=== PATIENT | male | born 1960 | race Caucasian/White ===

== ENCOUNTER 2024-10-11 15:45 | Outpatient (CLI) | payer BC, SELFPAY ==
--- NOTE | 2024-10-11 09:08 | DI.RAD_ITS ---
Exam(s) XR PELVIS AP EXAM: XR PELVIS AP CLINICAL HISTORY: right hip pain. TECHNIQUE: 2D digital imaging was performed. COMPARISON: CT ABD PELVIS WITH CONTRAST from 03/05/2009 CR XR HIP RIGHT W PELVIS from 06/21/2024 FINDINGS: Single AP view of both hips. There are no fractures. However, advanced narrowing of the superior aspect right hip joint. Similar to June 2024. Left hip joint space appears unremarkable on this single view. Sclerotic density is noted in the right ischial tuberosity region which is unchanged from outside hospital images of N 2023. IMPRESSION: Advanced degenerative narrowing of the superior aspect of the right hip joint, similar to previous Benign-appearing sclerotic bone density in the inferior pubic ramus right-side. This was also eviden t on prior imaging studies dating back to CT scan of 2008. Therefore most probably a benign bone isl and and very unlikely to be a sclerotic metastatic lesion. DATA REPOSITORY: RADIATION DOSE DELIVERED:
== END 2024-10-11 15:46 | disposition home or self-care (01) ==
LOC: DIORS 15:47
PROVIDERS: PCP Family Medicine; Visit Provider Physician Assistant
DX: M16.11 Unilateral primary osteoarthritis, right hip (principal)
CPT/HCPCS: 72170

== ENCOUNTER 2025-01-24 00:44 | Outpatient (CLI) | payer BC, SELFPAY ==
[2025-01-24 11:11] LABS: HCT 45.9 % (40.0-50.0); HGB 15.4 g/dL (13.5-17.5); MCH 28.2 pg (27.0-33.0); MCHC 33.6 % (32.0-36.0); MCV 84 fL (80-95); MPV 9.1 fL (8.0-11.0); Platelet Count 206 10^3/uL (130-400); RBC 5.46 10^6/uL (4.36-5.78); RDW-SD 42.7 fL
[2025-01-24 11:33] LABS: BUN 15 mg/dL (7-18); Calcium 8.9 mg/dL (8.5-10.1); Chloride 103 mmol/L (98-107); Estimated GFR 83.52 (mL/min/1.73m2); Glucose 94 mg/dL (74-106); Potassium 3.9 mmol/L (3.5-5.1); Sodium 141 mmol/L (136-145)
== END 2025-01-24 00:45 | disposition home or self-care (01) ==
LOC: LBO 00:44
PROVIDERS: PCP Family Medicine; Visit Provider Student in an Organized Health Care Education/Training Program
DX: M16.11 Unilateral primary osteoarthritis, right hip (principal); Z01.818 Encounter for other preprocedural examination
CPT/HCPCS: 36415; 80048; 85027

== ENCOUNTER 2025-02-01 06:10 | Day surgery (SDC) | payer BC, SELFPAY ==
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
[2025-02-01] VITALS (20 sets, daily range): BP systolic 126–152; BP diastolic 68–84; PULSE 48–61; RESP 0–19; TEMP 36.3–36.7; O2SAT 92–99; BMI 32.3
[2025-02-01] MEDS: Celecoxib 200 MG CAP 400 MG PO (06:47)
[2025-02-01] MEDS: Acetaminophen 500 MG TAB 1000 MG PO (06:47)
--- NOTE | 2025-02-01 07:08 | PDOC.DSDIS_ITS ---
Date of service: 02/01/25 Discharge Plan Disposition Patient Disposition: Home Condition: Good Discharge Details Reason For Visit: Right hip DJD Attending Provider: Danish Mcrae Primary Care Provider: Mehrdad Dobbs Home Meds and New Rx's Prescriptions: New acetaminophen 500 mg tablet 1,000 mg PO Q8H PRN Qty: 90 0RF Rx Instructions: Take two tablets up to every 8 hours as needed for pain celecoxib [Celebrex] 200 mg capsule 200 mg PO BID PRNQty: 60 0RF Rx Instructions: Take one tablet twice daily for pain and inflammation docusate sodium [Colace] 100 mg capsule 100 mg PO BID Qty: 28 0RF pantoprazole 40 mg tablet,delayed release (DR/EC) 40 mg PO DAILY Qty: 14 0RF dexamethasone 4 mg tablet 4 mg PO DAILY Qty: 2 0RF Rx Instructions: Take one tablet once daily for two days oxycodone 5 mg tablet 5 mg PO Q6H PRNQty: 12 0RF Rx Instructions: Take one tablet up to every 6 hours as needed for severe postoperative pain Continued apixaban 5 mg tablet 5 mg PO BID amlodipine 10 mg tablet 10 mg PO DAILY Discharge Instructions Additional Instructions: Total Hip Discharge Instructions Activity: The most important activity is to walk. You should try to take short walks a few times a day. You have no restrictions on movement or positioning, but do not try to force what you do. You will find some stiffness and weakness with hip flexion (lifting your knee). Do not try to strengthen this too early, continue to practice walking and stairs and this will come. - Outpatient physical therapy can be helpful to help return you to a normal gait and improve your flexibility and strength. This can start around 2 weeks. For some patients, it?s not necessary. Usually this is determined at the time of discharge or at the first post-operative visit. - You should wear the YVONNE hose on both legs for 2 weeks. Dressing: Keep the surgical dressing in place for at least one week. After the first week it may be removed and replace with light gauze and tape or nothing. It may get wet after 3 days but avoid soaking the dressing. If it gets wet, just lightly pat dry. It is important to always keep some gauze between skin folds, especially when you are sitting. Spend some time with the wound exposed when you are lying flat as the incision does wrinkle onto itself. Medications: - You should take Tylenol and an anti-inflammatory Celebrex as your primary pain control medications. If the Celebrex is too expensive or not covered, please call the office for another alternative (Advil/Ibuprofen or Naproxen/Aleve). - You have been prescribed a stronger pain medication Oxycodone for breakthrough pain, take as needed as prescribed. - You have also been prescribed a stomach acid reduction agent Pantoprozole to help reduce stomach acid and reflux. - You have also been prescribed Decadron to help with post-operative nausea and pain. You will take this for two days starting tomorrow. - You will resume taking your apixaban tomorrow on 02/02/25 for DVT prevention unless instructed otherwise. - If you have constipation you should take Colace (which has been prescribed) or Miralax (which is available [id number]). It takes most people 3-4 days to have a bowel movement. Follow-up: 2 weeks If you have any acute concerns or questions, please do not hesitate to contact the office at [phone]. You may contact Dr. Mcrae with any questions after hours through the hospital at [phone] or on his cell phone at [phone]. Referrals: Danish Mcrae MD [ [facility] STAFF PHYSICIAN, Orthopaedic Surgical] Equipment/Supplies: Walker Activity:: Elevate Remove Dressings/Wound Care:: Do Not Remove Shower/Bathe:: Cover Diet:: As Tolerated Discharge Orders Discharge Orders: Discharge Order (Routine); Ordered 02/01/25 Ordered By: Tabatha Levin
[2025-02-01] MEDS: Lactated Ringers 1,000 ML 80 ML IV (07:10)
--- NOTE | 2025-02-01 07:48 | ROE_ITS ---
Operative Note Operative Note PRE-OP DIAGNOSIS: Right Hip Osteoarthritis POST-OP DIAGNOSIS: same PROCEDURE: Right Anterior Total Hip Arthroplasty with Intraoperative Navigation SURGEON: Danish Mcrae SUPERVISOR CORRESPONDENCE SECTION: Tabatha Levin ANESTHESIA TYPE: Spinal Refer to Anesthesia Record ESTIMATED BLOOD LOSS: 250 PATHOLOGY: none sent TOURNIQUET TIME: 0 COMPLICATIONS: None Patient was transported to: PACU Patient's condition: stable Implants: 1. Depuy Luna Pier Acetabular Component, 60mm 2. Depuy Acetabular Liner, [id number] 3. Depuy Actis Standard Collared Femoral Stem, Size 9 4. Depuy Altrx Ceramic Femoral Head, Size 36+8.5mm Indications: I have seen Ruel in clinic for symptoms of hip arthritis, confirmed with radiographic findings. Ruel has exhausted nonoperative methods and was having significant limitations in daily function and desired better function and less pain. I discussed the technical details of a hip replacement. I explained the risks of the procedure to include, but not limited to, bleeding, infection, pain, stiffness, fracture, damage to nerves and vessels, damage to muscles and tendons, loosening, instability, leg length inequality, need for repeat procedure, blood clot and cardiopulmonary demise. Despite these risks, he elected to proceed. Findings: There was significant signs of arthritis throughout the hip. Procedure Description: Ruel was greeted in the preoperative holding area where the correct side was identified and marked. The consent was reviewed with the patient and signed. The history and physical was updated. All questions were answered. He was taken back to the operating room. A spinal anesthestic was then administered. The feet were wrapped with cast padding and Coban and then placed into the boot liners and then into the boots. Care was taken to protect the skin and make sure the heels were fully down and the boots were stable. The patient was then positioned onto the HANA table. Both legs were held in a neutral position. SCDs were applied. The patient was then slid down onto a peroneal post. Prophylactic antibiotics in the form of Cefazolin were administered. 1g of Tranxemic Acid was given intravenously within 30 minutes of incision. The right leg was then prepped with Chloraprep and draped in a standard fashion. A second prep with Chloraprep was performed prior to placement of a shower-curtain type drape with Iodine impregnated skin protection. A timeout to confirm correct identity, side and site, procedure, allergies, anesthesia, and medical concerns was performed. An obliquely oriented incision was made starting lateral to the ASIS and running distal over the Tensor Fascia Agnieszka (TFL) muscle belly toward the fibular head, approximately 10cm. The skin and soft tissue was dissected sharply, through Ted?s fascia, and to the fascia of the TFL. With the fascia and superior border of the IT band identified, the fascia was incised with a new knife just above any perforators from the IT band. The TFL muscle belly was bluntly dissected away from the fascia and moved laterally. The fat between TFL and rectus was identified to ensure the dissection was not within the TFL. Blunt dissection created space between abductors and the capsule and retractor was placed over the lateral femoral neck. The fibers of the rectus femoris tendon were identified and these were freed from the anterior capsule. A second cobra retractor was placed around the medial femoral neck. The TFL was further retracted laterally to show the deep fascia. Careful dissection through this layer identified three main crossing vessels of the lateral femoral circumflex. These were cauterized in multiple locations and then cut without any noticeable bleeding. The TFL was further released bluntly from the deep fascia to expose anterior hip capsule and fat The soft tissue orthopaedic retractor was then placed beneath the TFL and against sartorius and medial soft tissues to protect and retract the soft tissues. A T-capsulotomy was then performed starting at the superior lateral acetabulum and moving distally to the intertrochanteric ridge. These capsular flaps were tagged with a No. 1 Vicryl and elevated from within. The capsular flaps were released to the shoulder of the lateral neck and to the lesser trochanter to give excellent visualization of the proximal femur. A neck osteotomy was performed using an oscillating saw based on preoperative templates. This cut started in the shoulder and of the lateral neck and exited medially. The saw was at all times directed medially to avoid injury to the greater trochanter. Gross traction was applied to the leg and the osteotomy opened. The femoral head was removed with a corkscrew, making sure to protect the TFL on its exit. Traction was released after head removal. This was measured on the back table to determine the starting reamer size. Portions of the rectus obscuring visualization were minimally elevated off the superior acetabulum. An anterior retractor was placed over the anterior wall between capsule and labrum and attached to the Gripper retraction system. The femur was rotated to 90 degrees and medial capsule was fully released until the lesser trochanter was palpable and visible; the femur was returned to 30 degrees. A posterior retractor was placed similarly between capsule and labrum. This provided excellent visualization. The contents of the cotyloid fossa were removed with electrocautery and the labrum was removed with a knife. There was a notable floor osteophyte. There was significant chondromalacia of the superior acetabulum. Acetabular reaming began with a 57mm reamer. This first reaming was directed anterior to posterior and medial to get down to the true floor. This was inspected and reamed until the true floor was reached. The anterior retractor was then released and entry and exit was provided by traction on the capsular flaps. I then reamed sequentially up to a 60mm reamer where good fit was obtained. The larger reamers were oriented based on anatomical reference of the anterior and lateral wetzel to ensure proper abduction and anteversion. Positioning and size was confirmed with the fluoroscopy. A 60mm Depuy Luna Pier acetabular component was selected. The acetabulum was reamed around the periphery with the selected acetabular size to prevent a rim fit. The deep tissues were irrigated. The acetabular component was then impacted in a position of about 40-45 degrees of abduction and 15-20 degrees of anteversion, using the patient?s anatomy as the ultimate landmark. Fluoroscopy was used to confirm this. There was excellent patternmaker hand of the acetabular component and the inserting handle was removed. The acetabular liner, Depuy [id number] polyethylene liner, was inserted and lined up with the tines of the acetabular component. There was no soft tissue interposition. The liner was then impacted into position and confirmed to be well-seated. A portion of the mitzy-articular cocktail was then injected around the acetabulum into the capsule and periosteum. This cocktail consisted of 123mg of Ropivacaine, 0.25mg of Epinephrine, 0.04mg of Clonidine, and 15mg of Ketorolac, diluted to 50cc. The leg was rotated to 120 degrees. Any remaining medial capsule was released until the lesser trochanter was easily palpable. A retractor was placed medially. The lateral capsule was further released into the shoulder to allow access to the greater trochanter. A Andrea retractor was placed over the greater trochanter which allowed the trochanter to flip in front of the capsule for excellent exposure. The leg was brought down into maximal extension and 20 degrees of adduction while ensuring there was no impingement on the acetabulum. Any remnant capsule within the trochanter was released. Piriformis and obturator externis were identified and protected. There was excellent access to the proximal femur. The lateral neck remnant was removed with a rongeur. A blunt canal probe was used to identify the canal and trajectory for later broaching. A box osteotome initiated the broach course. A small curved rasp and a curved curette were used to work laterally. Broaching then began with a starter Actis broach. This was inserted manually around the trochanter and into the canal before mallet blows. The broach was seated to a few millimeters below the cut level based on the neck cut and the preoperative template. Sequential broaching was continued with the [employer] pneumatic broaching device until a tight fit was obtained with good rotational control of the femur. A trial standard neck was inserted along with a +8.5 trial head. The leg was brought out of extension and adduction and then reduced with traction and internal rotation. The leg was stable anteriorly in a position of 30 degrees of extension and 90 degrees of external rotation. Fluoroscopy was used to ensure there was no fracture and the stem was seated well. Leg lengths were checked with an AP pelvis and pelvic reference points. [employer] navigation system was used to confirm appropriate positioning and leg length and offset. Once content with the desired offset and leg lengths, the leg was brought back into extension, external rotation and adduction. The periosteum and surrounding tissue was injected with remaining portion of the mitzy-articular cocktail. The proximal femur was irrigated as well as the deep tissues. The Depuy Actis standard collared stem, size 9, was then manually inserted into the proximal femur making sure to control rotation. It was then malleted into position with light blows, giving breaks to allow bone expansion and decrease risk of fracture. The selected Depuy Altrx Ceramic Head, size 36+8.5mm, was then placed onto the clean and dry trunnion and secured with impaction onto the tapered fit. The leg was brought back out of extension and adduction and reduced with traction and internal rotation. Stability was confirmed with no shuck at 90 degrees of external rotation and 30 degrees of extension. No impingement through range of motion arc. Final x-ray images were obtained with fluoroscopy to confirm adequate positioning and no intraoperative fracture. The deep tissues were thoroughly irrigated with Surgiphor, betadine solution. This was allowed to sit in the wound for 3 minutes before being thoroughly irrigated out with normal saline. The capsule was then reapproximated with the previously placed sutures and the indirect head of the rectus was inspected and reapproximated with a #1 Vicryl. The TFL fascia was finally closed with a No. 2 Stratafix, barbed suture. Deep tissues were then reapproximated with 0 Vicryl and a running 2-0 Vicryl. The skin was closed with a running 4-0 Monocryl in a subcuticular fashion. This was reinforced with skin glue. A Mepilex silver dressing was applied. At the end of the case, all counts were correct. Ruel was transferred to the hospital bed without difficulty and suffering no apparent complication. He has a good prognosis. Physical therapy will start today and without restrictions, weight-bearing as tolerated. His home dose of Apixaban 5mg BID will be used for DVT prophylaxis. Date of Procedure: 02/01/25
[2025-02-01] MEDS: ceFAZolin 2 GM/50 ML BAG IVPB (07:50)
[2025-02-01] MEDS: TRANEXAMIC ACID/SOD. CHL. 1,000 MG/100 ML BAG 600 MG IVPB (07:53)
--- NOTE | 2025-02-01 08:55 | DI.RAD_ITS ---
Exam(s) XR HIP RT IN OR EXAM: XR HIP RT IN OR CLINICAL HISTORY: RIGHT HIP DJD. TECHNIQUE: 2D and realtime digital imaging was performed. COMPARISON: No exams were available for comparison FINDINGS: Hard copy image shows placement of a right hip prosthesis. Please see procedure note for details. Fluoro time: 22.9seconds RADIATION DOSE DELIVERED: fernando Sevilla=3.7 mGy
[2025-02-01] MEDS: fentaNYL 100 MCG/2 ML VIAL IVP ×2 (09:28→09:36)
[2025-02-01] MEDS: HYDROmorphone 2 MG/ML SYR IVP (09:51)
[2025-02-01] MEDS: Normal Saline 10 ML VIAL IJ (09:51)
--- NOTE | 2025-02-01 09:57 | W.ANESPOSTOP ---
Postoperative Evaluation Date, Time and Location Date Performed: 02/01/25 Time Performed: 09:57 Patient Location: PACU Vital Signs Most Recent Imported Vital Signs: Most Recent Vital Signs Temp Pulse Resp BP Pulse Ox 36.5 C 48 L 16 126/76 97 02/01/25 09:35 02/01/25 06:15 02/01/25 06:15 02/01/25 06:15 02/01/25 06:15 Pain Score Most Recent Pain Score: Most Recent Pain Score Pain Level 10 02/01/25 09:35 Assessment Mental Status: Awake (Alert & Oriented to Patient Baseline) Airway and Respiratory Function: Patent airway with normal (patient baseline) respiratory exam Cardiovascular Function: Hemodynamically Stable Hydration Status: Adequately Hydrated Nausea & Vomiting: No Nausea or Vomiting Pain: Pain is tolerable per patient Peripheral Nerve Block: Patient did not receive a nerve block
[2025-02-01] MEDS: oxyCODONE 5 MG TAB PO (10:22)
--- NOTE | 2025-02-01 13:24 | PT.INIE ---
PT Notes Visit Reasons: Right hip DJD Physical Therapy Day Surgery Initial Evaluation Date: 02/01/2025 Referring Doctor: Tabatha Levin [employer], Dr Mcrae PT Orders: PT CONSULT: s/p Ortho surgery Precautions:RLE WBAT Patient Profile/Admitting Diagnosis: Ruel is a 64 yo male presenting s/p elective right JUDITH d/t DJD . Post op uncomplicated PMHX: Degenerative joint disease of right hip (Chronic) Hyperlipidemia (Acute) Hypertension (Chronic) ULISES (obstructive sleep apnea) (Chronic) Medical History (Updated 10/11/24 @ 09:11 by Tabatha Levin) History of basal cell carcinoma Pulmonary embolism History of deep vein thrombosis Social History/Home Situation: Patient resides in single-family home 5 steps to enter with right rail entering and 13 steps down into his finished basement. Patient independent without assistive device for ambulation, independent ADLs, drives, independent yard work household tasks and meal prep Equipment Owned/DME: [facility] provided Subjective: Patient reports 0.5 pain eager to move and return home Objective: [] General Observation: Male semireclined in stretcher ice to right hip Mental Status: Alert and oriented x 4, cooperative, motivated, able to follow instructions, agreeable to participate in eval Pain: 0.5 right hip ROM: [] Right Upper Extremity: WNL Left Upper Extremity: WNL Right Lower Extremity: Hip flexion approximately 95 degrees, abduction 15 degrees internal rotation to neutral knee and ankle within normal limits Left Lower Extremity: WNL Strength: [] Right Upper Extremity: 5/5 Left Upper Extremity: 5/5 Right Lower Extremity: Hip flexion: 3 -/5; hip abduction: 3 -/5; hip extension: 3 -/5; knee extension: 3/5; knee flexion: 3 -/5 ankle DF: 3/5 ; ankle PF: 3/5 Left Lower Extremity: 5/5 Sensation: Intact to light touch and pain Bed Mobility/Transfers: [] Supine to sit independent Sit to stand supervision with cues to push up Stand to sit supervision with cues to reach back Bed to chair supervision with FWW Gait: Ambulated with FWW supervision reciprocal pattern 150 feet Stairs: 5 steps with right rail ascending standby assist step to pattern Balance: [] Static Sitting: Normal Dynamic Sitting: Good Static Standing: Good Dynamic Standing: Fair plus Special Tests: [] Mobility Limitations Standardized Measure [] [employer] AM-PAC 6 clicks Basic Mobility Inpatient Short Form: [] Raw Score: 23 CMS Score: 11.20% Informed Consent/Education: Patient instructed in purpose of PT consult. Treatment: 23380 packet containing JUDITH exercise protocol has been given to patient. Education and training on initial set of 10 reps of exercises that can be done at home have been completed with patient. Assessment: Patient presents with clinical signs and symptoms consistent with current/admitting diagnoses that have resulted to mobility limitations, gait instability, generalized weakness, and impairment of motor control as demonstrated by the following impairment level findings: 1. Decreased strength to right hip major muscle groups 2. Impaired standing balance 3. Limitation of joint range of motion in right hip 4. Impaired functional activity tolerance Impairments are contributing to the following functional limitations: 1. Inability to safely ambulate without assistive device 2. Increase completion time for mobility ADL performance 3. Increased fall risk 4. Difficulty performing stairs independently without device Patient is assessed as a moderate complexity based on the following: History: 64-year-old male with impairment level findings, functional limitations, and past medical history as indicated above Examination: Demonstrable impairment in strength, balance, and mobility level with underlying impairments and functional limitations as documented above Presentation: Stable/evolving Decision Making: Moderate Goals: N/A. PT evaluation and 1-2 treatment sessions only for functional mobility training using recommended AD and for HEP instruction. Plan of Care/Treatment Plan: N/A. PT evaluation and 1-2 treatment session only for functional mobility training using recommended AD and for HEP instruction. DISCHARGE RECOMMENDATIONS: Home with HEP TREATMENT CODE/TIME: 84701, [id number] Thank you for the opportunity to participate in the care of this patient. Jennifer Umana, PT [facility]
== END 2025-02-01 13:10 | disposition home or self-care (01) ==
PROVIDERS: PCP Family Medicine; Visit Provider Student in an Organized Health Care Education/Training Program
PROC: (CPT 27130; principal; 2025-02-01 07:30)
DX: M16.11 Unilateral primary osteoarthritis, right hip (principal); I10 Essential (primary) hypertension
CPT/HCPCS: 27130; 20985; 97110; 97162; 73501; C1776; J0690; J1100; J1171; J2003; J2250; J2371; J2401; J2405; J2704; J3010

== ENCOUNTER 2025-02-14 11:16 | Outpatient (CLI) | payer MEDICARE, BC, SELFPAY ==
--- NOTE | 2025-02-14 11:37 | DI.RAD_ITS ---
Exam(s) XR HIP RT COMPLETE AP PELVIS EXAM: XR HIP RT COMPLETE AP PELVIS INDICATION: 1ST POST OP S/P R JUDITH. COMPARISON: CR XR PELVIS AP from 10/11/2024 XA XR HIP RT IN OR from 02/01/2025 TECHNIQUE: 2D digital imaging was performed. Two views. FINDINGS: There is stable alignment of the right hip prosthesis. There are no abnormal surrounding lucencies. Mild to moderate degenerative changes are again noted in the left hip. DATA REPOSITORY: RADIATION DOSE DELIVERED:
== END 2025-02-14 11:17 | disposition home or self-care (01) ==
LOC: DIORS 11:17
PROVIDERS: PCP Family Medicine; Visit Provider Student in an Organized Health Care Education/Training Program
DX: M16.12 Unilateral primary osteoarthritis, left hip (principal); Z96.641 Presence of right artificial hip joint
CPT/HCPCS: 73502

== ENCOUNTER → 2025-03-14 09:42 | Outpatient (BNVA) | payer MEDICARE, BC, SELFPAY | PROVIDERS: PCP Family Medicine; Referring Provider Family Medicine; Visit Provider Student in an Organized Health Care Education/Training Program | DX: Z47.1 Aftercare following joint replacement surgery (principal); Z96.641 Presence of right artificial hip joint | CPT/HCPCS: 99024 ==